=== PATIENT | male | born 1970 | race Caucasian/White ===

== ENCOUNTER → 2021-01-08 | Outpatient (CLI) | payer OTHER ==
[~2021-01-08] MED LIST: ABILIFY2 MG PO; BUPRENORPHIN-N1 EACH SL; BUSPAR 10MG10 MG PO; CLEOCIN HCL300 MG PO; IBUPROFEN600 MG PO; IBUPROFEN800 MG PO; KEFLEX CAP 500500 MG PO; LIPITOR TAB 2020 MG PO; LISINOPRIL-HCT1 EACH PO; NEURONTIN400 MG PO; OXYCODONE HCL5 M1 PO; PRECOSE25 MG PO; TRAZODONE HCL50 MG PO; VITAMIN C 500500 MG PO
== END ==
LOC: KOH-I 12:44
DX: M79.672 Pain in left foot (principal); Z98.1 Arthrodesis status
CPT/HCPCS: 73700

== ENCOUNTER 2021-09-20 07:48 | Emergency (ER) | payer OTHER | END 2021-09-20 08:39 | disposition left against medical advice (07) | LOC: ER1 07:48 | DX: T17.228A Food in pharynx causing other injury, initial encounter (principal) | CPT/HCPCS: 71045; 99281 ==